=== PATIENT | female | born 1945 | race Caucasian/White ===

== ENCOUNTER 2022-06-24 01:16 | Emergency (ER) | payer MEDICARE, SELFPAY ==
[2022-06-24] VITALS (10 sets, daily range): BP systolic 154–196; BP diastolic 85–107; PULSE 80–107; RESP 15–18; TEMP 36.2–37.1; O2SAT 92–97; BMI 29.0
--- NOTE | 2022-06-24 02:04 | ED_ITS ---
HPI - Altered Mental Status General Chief Complaint: Altered Mental Status Stated Complaint: behavioral problems Time Seen by Provider: 06/24/22 01:30 Source: EMS Mode of arrival: EMS Limitations: altered mental status History of Present Illness HPI narrative: 76-year-old female with history of dementia, nonverbal, Parkinson's presents with change in mental status. Patient comes from assisted living facility. A pparently over the last couple months, she has had increasing needs. More recently, she has departed from her baseline mental status. She appears to be refusing care and medications. Patient is unable to provide any other information. She arrived with EMS without any paperwork. Related Data Allergies Allergy/AdvReac Type Severity Reaction Status Date / Time No Known Allergies Allergy Verified 06/24/22 01:25 Review of Systems Review of Systems: Yes Unobtainable due to mental status [facility] Social History Social History Alcohol intake: never Smoked in Last 30 Days: No Advance Directives: No Advance Directives Information Provided: Yes Physical Exam ED Vital Signs: Vital Signs - 24 hr 06/24/22 01:25 06/24/22 03:09 06/24/22 04:47 Temperature 97.2 F 97.2 F 97.4 F Pulse Rate 96 80 85 Respiratory Rate 18 18 18 Blood Pressure 166/100 H 169/87 H 164/94 H Pulse Oximetry 96 97 97 Oxygen Delivery Method Room Air Room Air Room Air BMI result Body Mass Index 29.0 GEN: Well developed, no acute distress, alert, nonverbal HEENT: Normocephalic, atraumatic, normal external ears, nose appears normal, no oropharyngeal edema or exudates Eyes: Normal to appearance Neck: Supple, no lymphadenopathy Respiratory: Talks in complete sentences, no respiratory distress, clear to auscultation bilaterally Cardiovascular: Regular rate and rhythm, no murmurs rubs or gallops Abdomen: Soft, nontender, nondistended, no guarding, no rebound Back: No CVA tenderness Extremities: No clubbing cyanosis or edema Neurologic: No focal neurologic deficits, cranial nerves 2-12 intact, strength is 5/5 bilaterally Skin: No rash Course Course Course Narrative: 76-year-old female coming from assisted living with history of dementia, Parkinson's, diabetes presents with reportedly altered mental status from her b aseline nonverbal soft. She appears to be more combative at her assisted living facility. Patient provides no history or complaints. Patient will have routine laboratory analysis, straight catheter for urine, physical therapy and case management in the morning. Reevaluation(s) Reevaluation #1: The patient is currently pending case management and physical therapy evaluation. Patient will be signed out to the [facility] Emergency Department physician at 7:00 a.m.. Time: 06:15 Medical Decision Making Medical Decision Making [facility] Narrative: 76-year-old female coming from assisted living with history of dementia, Parkinson's, diabetes presents with reportedly altered mental status from her baseline nonverbal soft. She appears to be more combative at her assisted living facility. Patient provides no history or complaints. Patient will have routine laboratory analysis, straight catheter for urine, physical therapy and case management in the morning. Differential Diagnosis Differential Diagnoses: The differential diagnosis associated with the presentation includes (Dementia, urinary tract infection, electrolyte abnormality, thyroid dysfunction, altered mental status) Dementia Admission/Observation Consideration of admission/observation: Escalation of care including admission/observation considered Lab Data [facility] Lab Attestation statement: I reviewed the patient's lab results. 06/24/22 02:12 06/24/22 02:12 Labs: Lab Results 06/24/22 06/24/22 06/24/22 Range/Units 02:08 02:12 02:12 WBC 9.3 (4.8-10.8) X10*3/uL RBC 5.14 (4.20-5.50) X10*6/uL Hgb 14.3 (12.0-16.0) g/dl Hct 43.4 (37.0-47.0) % MCV 84.4 (80.0-98.0) fL MCH 27.8 (27.0-33.0) pg MCHC 32.9 (31.0-35.0) g/dl RDW 13.8 (11.0-16.0) % Plt Count 280 (160-400) X10*3/uL MPV 9.4 (9.4-12.3) fL Immature Gran % (Auto) 0.3 (0.0-0.4) % Neut % (Auto) 62.7 (45-73) % Lymph % (Auto) 23.9 (20-40) % [place] % (Auto) 9.7 (2-11) % Eos % (Auto) 2.5 (0-4) % Baso % (Auto) 0.9 (0-2) % Lymph # (Auto) 2.2 (1.2-4.9) X10*3/uL [place] # (Auto) 0.9 (0.1-1.2) X10*3/uL Eos # (Auto) 0.2 (0.0-0.4) X10*3/uL Baso # (Auto) 0.1 (0.0-0.2) X10*3/uL Abs Immat Gran (auto) 0.03 (0.00-0.03) X10*3/uL Absolute Neuts (auto) 5.9 (2.0-8.3) x10*3/uL Absolute Nucleated RBC 0.000 (0.0-0.012) X10*3/uL Nucleated RBC % (auto) 0.0 (0.0-0.2) /100WBC Sodium 143 (135-145) mmol/L Potassium 4.1 (3.3-5.1) mmol/L Chloride 109 H (96-108) mmol/L Carbon Dioxide 21 L (22-29) mmol/L Anion Gap 17 (12-20) BUN 18 H (9-16) mg/dL Creatinine 0.84 (0.5-1.4) mg/dL Estim Creat Clear Calc 63.2 Estimated GFR > 60 Random Glucose 131 H (60-115) mg/dL Calcium 9.6 (8.4-10.2) mg/dL Total Bilirubin 1.4 H (0.0-1.0) mg/dL AST 28 (5-31) U/L ALT 47 H (0-31) U/L Alkaline Phosphatase 132 H (39-117) U/L Total Protein 6.4 L (6.5-8.0) g/dL Albumin 3.9 (3.5-5.0) g/dL TSH 1.86 (0.32-4.0) uIU/mL Urine Color Urine Appearance Urine pH (5.0-9.0) Ur Specific [place] (1.005-1.025) Urine Protein (Neg-Trace) mg/dL Urine Glucose (UA) (Negative) mg/dL Urine Ketones (Negative) mg/dL Urine Blood (Negative) Urine Nitrite (Negative) Ur Leukocyte Esterase (Negative) COVID-19 (ANGELINA) Negative (Negative) COVID-19 Clin Com See Note 06/24/22 Range/Units 05:19 WBC (4.8-10.8) X10*3/uL RBC (4.20-5.50) X10*6/uL Hgb (12.0-16.0) g/dl Hct (37.0-47.0) % MCV (80.0-98.0) fL MCH (27.0-33.0) pg MCHC (31.0-35.0) g/dl RDW (11.0-16.0) % Plt Count (160-400) X10*3/uL MPV (9.4-12.3) fL Immature Gran % (Auto) (0.0-0.4) % Neut % (Auto) (45-73) % Lymph % (Auto) (20-40) % [place] % (Auto) (2-11) % Eos % (Auto) (0-4) % Baso % (Auto) (0-2) % Lymph # (Auto) (1.2-4.9) X10*3/uL [place] # (Auto) (0.1-1.2) X10*3/uL Eos # (Auto) (0.0-0.4) X10*3/uL Baso # (Auto) (0.0-0.2) X10*3/uL Abs Immat Gran (auto) (0.00-0.03) X10*3/uL Absolute Neuts (auto) (2.0-8.3) x10*3/uL Absolute Nucleated RBC (0.0-0.012) X10*3/uL Nucleated RBC % (auto) (0.0-0.2) /100WBC Sodium (135-145) mmol/L Potassium (3.3-5.1) mmol/L Chloride (96-108) mmol/L Carbon Dioxide (22-29) mmol/L Anion Gap (12-20) BUN (9-16) mg/dL Creatinine (0.5-1.4) mg/dL Estim Creat Clear Calc Estimated GFR Random Glucose (60-115) mg/dL Calcium (8.4-10.2) mg/dL Total Bilirubin (0.0-1.0) mg/dL AST (5-31) U/L ALT (0-31) U/L Alkaline Phosphatase (39-117) U/L Total Protein (6.5-8.0) g/dL Albumin (3.5-5.0) g/dL TSH (0.32-4.0) uIU/mL Urine Color Yellow Urine Appearance Clear Urine pH 5.5 (5.0-9.0) Ur Specific [place] 1.020 (1.005-1.025) Urine Protein Negative (Neg-Trace) mg/dL Urine Glucose (UA) Negative (Negative) mg/dL Urine Ketones Negative (Negative) mg/dL Urine Blood Negative (Negative) Urine Nitrite Negative (Negative) Ur Leukocyte Esterase Negative (Negative) COVID-19 (ANGELINA) (Negative) COVID-19 Clin Com Independent Historian Clinical information obtained from an independent historian. History obtained from or confirmed by: EMS External Record Review No records available Chronic Conditions Patient?s care impacted by: Diabetes and Other (Dementia, Parkinson's) Discharge Plan Discharge Clinical Impression: Altered mental status, Dementia Patient Disposition: Still a Patient
[2022-06-24 02:16] LABS: MANUAL DIFF FLAG NO
[2022-06-24 02:17] LABS: Basophils Absolute Auto 0.1 X10*3/uL (0.0-0.2); Basophils Percent Auto 0.9 % (0-2); Eosinophils Absolute Auto 0.2 X10*3/uL (0.0-0.4); Eosinophils Percent Auto 2.5 % (0-4); Hematocrit 43.4 % (37.0-47.0); Hemoglobin 14.3 g/dl (12.0-16.0); Imm Gran Abs Auto 0.03 X10*3/uL (0.00-0.03); Imm Gran Pct Auto 0.3 % (0.0-0.4); Lymphocytes Absolute Auto 2.2 X10*3/uL (1.2-4.9); Lymphocytes Percent Auto 23.9 % (20-40); Mean Corpuscular HGB Conc 32.9 g/dl (31.0-35.0); Mean Corpuscular Hemoglobin 27.8 pg (27.0-33.0); Mean Corpuscular Volume 84.4 fL (80.0-98.0); Mean Platelet Volume 9.4 fL (9.4-12.3); Monocytes Absolute Auto 0.9 X10*3/uL (0.1-1.2); Monocytes Percent Auto 9.7 % (2-11); Neutrophils Absolute Auto 5.9 x10*3/uL (2.0-8.3); Neutrophils Percent Auto 62.7 % (45-73); Platelet Count 280 X10*3/uL (160-400); Red Blood Count 5.14 X10*6/uL (4.20-5.50); Red Cell Distribution Width 13.8 % (11.0-16.0); White Blood Count 9.3 X10*3/uL (4.8-10.8)
[2022-06-24 02:34] LABS: COVID-19 Test Negative (Negative); IDNOW Serial# 6674DD1D
[2022-06-24 02:52] LABS: Alanine Aminotransferase 47 U/L (0-31); Albumin Level 3.9 g/dL (3.5-5.0); Alkaline Phosphatase 132 U/L (39-117); Anion Gap 17 (12-20); Aspartate Amino Transferase 28 U/L (5-31); Bilirubin Total 1.4 mg/dL (0.0-1.0); Blood Urea Nitrogen 18 mg/dL (9-16); Calcium 9.6 mg/dL (8.4-10.2); Carbon Dioxide 21 mmol/L (22-29); Chloride 109 mmol/L (96-108); Creatinine Clr Calc Pharmacy 63.2; Estimated Glomerular Filt Rate > 60; Glucose Random 131 mg/dL (60-115); Potassium 4.1 mmol/L (3.3-5.1); Sodium 143 mmol/L (135-145); Total Protein 6.4 g/dL (6.5-8.0)
[2022-06-24 03:07] LABS: TSH reflex Free T4 1.86 uIU/mL (0.32-4.0)
[2022-06-24 05:25] LABS: Appearance Urine Clear; Color Urine Yellow; Glucose Urine UA Negative (Negative); Leukocyte Esterase Urine Negative (Negative); Nitrite Urine Negative (Negative); PH 5.5 (5.0-9.0); Urine Blood Negative (Negative); Urine Ketones Negative (Negative); Urine Protein Negative (Neg-Trace)
--- NOTE | 2022-06-24 05:38 | PC.NURSE ---
Pt. resistive to care. Able to draw blood and obtain covid swabs. Pt. incontinent of urine. Straight cath ordered. Pt. resistant to catheter, however, tolerated the procedure well. Urine collected and sent to lab. Pt. is non-verbal and will reply yes or no. Pt. does make attempts to communicate, however, is difficult to understand. Pt. denies pain. Pt. repositioned in bed. Pt. was able to sleep for a short amount of time (2-3 hours).
--- NOTE | 2022-06-24 06:26 | PC.NURSE ---
Pt. from [facility] assisted living.
--- NOTE | 2022-06-24 09:52 | PC.NURSE ---
patient awake/alert, responding to simple questions, vss, pt denies pain at this time, call preston within reach will continue to monitor
--- NOTE | 2022-06-24 13:03 | PHA.MEDREC ---
Pharmacy Consult ? Medication Reconciliation Pharmacy has completed the medication reconciliation. Pharmacy faxed list from [facility].
--- NOTE | 2022-06-24 13:05 | PC.NURSE ---
pt alert, forming small sentences. Denies pain. Vitals remain stable. Will continue to monitor.
--- NOTE | 2022-06-24 14:21 | PC.NURSE ---
patient awake/alert, speaking in short sentences/slurred speech, pt was evaluated by pt- pt wanting to get oob to ambulate to bathroom- pt was offered bedpan at this time, vss, call preston within reach, fall precautions in tact, will continue to monitor ,
--- NOTE | 2022-06-24 14:21 | PC.NURSE ---
pt alert, and sitting up. VSS, denies any pain.
--- NOTE | 2022-06-24 14:57 | MHC.CM.PN ---
Addendum entered by Ruby Isbell 06/24/22 15:29: SUSHANT RECEIVED A RETURN CALL FROM [facility] STAFF INDICATING THEIR DIRECTOR WANTED TO COME SEE PT HERE BEFORE SHE RETURNS SHE WANTS TO DO THAT ON SUNDAY SUSHANT CALLED THE DIRECTOR OF CLINICAL SERVICES, ABELINO [phone] AND INFORMED HER THE PT HAS NO REASON TO STAY IN THE ED AND IS READY TO RETURN TO HER HOME ABELINO REPORTS SHE WILL SPEAK WITH FAMILY ABOUT ARRANGING MORE CARE FOR HER THERE . PTS DAUGHTER WILL SEE HER TONIGHT AT HOME Original Note: SUSHANT SPOKE TO BOTH PTS DAUGHTER MERRICK AND SON EDUARDO THEY REPORT CONCERNS THAT THEY WERE TOLD THE PT WAS COMING IN DUE TO A FALL HOWEVER THERE WAS NOTHING REPORTED BY [facility] TO HOSPITAL PER ED NOTES, PT SEEN FOR AMS AND REFUSING CARE/MEDS THEY ASKED QUESTIONS ABOUT WHAT HAPPENS IF [facility] CAN NO LONGER CARE FOR THE PT CM INFORMED THEM THEY SHOULD WORK WITH [facility] TO ENSURE PT HAS LTC ARRANGEMENTS MADE CM EXPLAINED THIS IS A LENGTHY PROCESS AND SHOULD BE STARTED BEFORE THERE IS A NEED BOTH OF PTS CHILDREN REPROTED THEY WOULD LIKE HER TO RETURN TO THE [facility] PT IS W/C BOUND AT BL AND DEPENDENT FOR ALL CARE THEY UNDERSTAND STR WOULD LIKE NOT BE BENEFICIAL OR COVERED BASED ON HER BASELINE FUNCTIONING SUSHANT CALLED [facility] [phone] AND SPOKE TO SOLANGE WHO STATED THE CHARGE NURSE WILL BE OUT OF THE BUILDING FOR A COUPLE OF HOURS, HOWEVER SHE WILL INFORM HER AND STAFF OF PTS RETURN SO THAT THEY CHECK ON HER LATER FAMILY AWARE [facility] IS UNABLE TO TRANSPORT UNTIL 1700 HOURS
--- NOTE | 2022-06-24 16:31 | PC.NURSE ---
pt resting, no distress, vss. Nurse awaiting call to [facility]
--- NOTE | 2022-06-24 18:21 | PC.NURSE ---
attempted to call facility, no answer- told ems to have them call us if they wish to have report
== END 2022-06-24 18:21 | disposition other institution (70) ==
PROVIDERS: Emergency Provider Emergency Medicine; PCP Internal Medicine
DX: R41.82 Altered mental status, unspecified (principal); G20 Parkinson's disease; F02.811 Dementia in other diseases classified elsewhere, unspecified severity, with agitation; E11.9 Type 2 diabetes mellitus without complications; Z20.822 Contact with and (suspected) exposure to COVID-19
CPT/HCPCS: 36415; 51701; 80053; 81003; 84443; 85025; 87635; 97162; 99285